=== PATIENT | female | born 1930 | race Asian ===

== ENCOUNTER 2019-04-01 14:25 | Inpatient (IN) | payer MEDICARE, OTHER ==
[~2019-04-01] VITALS: Ht 162.6 cm; Wt 60.4 kg
[~2019-04-01 14:25] MED LIST: ASPI-825 PO; BENZ-51 PO; HYDR-4173 PO; LEVO50TA11 PO; PRO AIR IH; SIMV-261 PO
[2019-04-01] MEDS ORDERED: PRAM0.258 PO (14:43)
[2019-04-01] MEDS ORDERED: LEVO250 PO (14:43)
[2019-04-01] MEDS ORDERED: LOSA50TA64 PO (14:43)
[2019-04-01] MEDS ORDERED: NEBI5 PO (14:43)
[2019-04-01] MEDS ORDERED: LEVO75 PO (14:43)
[2019-04-01] MEDS ORDERED: ONDANSETRON HCL 4 MG/2 ML VIAL IVP ONE (15:00)
[2019-04-01] MEDS ORDERED: FAMOTIDINE 10 MG/ML 2 ML VIAL IVP ONE (15:00)
[2019-04-01] MEDS ORDERED: SODIUM CHLORIDE 0.9% 1,000 ML IV ONE (15:00)
[2019-04-01] MEDS ORDERED: BARIUM SULFATE 0.1% SUSPENSION 450 ML BOTTLE PO ONE (15:00)
[2019-04-01] MEDS ORDERED: ASPI81 PO (15:09)
[2019-04-01 15:32] LABS: BASOPHILS % (AUTO) 0.2 % (0.0-2.0); EOSINOPHILS % (AUTO) 0.1 % (1.0-6.0); HEMATOCRIT 35.9 % (36-46); HEMOGLOBIN 12.3 g/dL (12.0-16.0); LYMPHOCYTES # (AUTO) 0.7 K/uL (1.0-4.8); LYMPHOCYTES % (AUTO) 9.8 % (22.0-44.0); MEAN CORPUSCULAR HEMOGLOBIN 29.8 pg (26.0-34.0); MEAN CORPUSCULAR HGB CONC 34.3 G/dL (31.0-37.0); MEAN CORPUSCULAR VOLUME 87 fL (80-100); MONOCYTES # (AUTO) 0.5 K/uL (0.1-1.0); MONOCYTES % (AUTO) 6.9 % (2.0-9.0); NEUTROPHILS # (AUTO) 6.1 K/uL (1.8-7.7); PLATELET COUNT (AUTO) 363 K/uL (150-450); RED BLOOD CELL COUNT(AUTO) 4.13 MIL/uL (4.00-5.20); RED CELL DISTRIBUTION WIDTH 13.6 % (11.5-14.5)
[2019-04-01 15:51] LABS: INR 1.1 (0.9-1.1); PROTHROMBIN TIME 11.6 SEC (9.4-11.6)
[2019-04-01 15:54] LABS: ALBUMIN 3.6 g/dL (3.4-5.0); CALCIUM, TOTAL 8.6 mg/dL (8.8-10.5); CREATININE 0.9 mg/dL (0.60-1.30); POTASSIUM 3.1 mmol/L (3.5-5.1); TOTAL PROTEIN, SERUM 7.5 g/dL (6.4-8.2)
[2019-04-01] MEDS ORDERED: SODIUM CHLORIDE 0.9% 100 ML ONE ×3 (16:50→16:52)
[2019-04-01] MEDS ORDERED: IOVERSOL 320 MG/ML 100 ML VIAL ONE (16:50)
[2019-04-01 16:59] LABS: MAGNESIUM 1.9 mg/dL (1.80-2.40)
[2019-04-01] MEDS ORDERED: POTASSIUM CHLORIDE 10% 40 MEQ/30 ML LIQUID UDCUP PO ONE (17:30)
[2019-04-01 17:39] LABS: POTASSIUM,URINE RANDOM 33 mmol/L (12-75); SODIUM,URINE RANDOM 62 mmol/l (20-110)
[2019-04-01 17:47] LABS: THYROID STIMULATING HORMONE 4.41 uIU/mL (0.36-3.74)
[2019-04-01 17:55] LABS: APPEARANCE,URINE CLEAR (CLEAR); BILIRUBIN,URINE NEGATIVE (NEGATIVE); GLUCOSE, URINE (UA) NEGATIVE (NEGATIVE); KETONES,URINE NEGATIVE (NEGATIVE); LEUKOCYTE ESTERASE ,URINE NEGATIVE (NEGATIVE); NITRATE,URINE NEGATIVE (NEGATIVE); OCCULT BLOOD,URINE SMALL (NEGATIVE); PROTEIN,URINE NEGATIVE (NEGATIVE); UROBILINOGEN,URINE 0.2 mg/dL (<=1.0)
[2019-04-01 18:02] LABS: BACTERIA,URINE None Seen /HPF (None Seen); RBC,URINE 0-2 /HPF (0-2); SQUAMOUS EPITHELIAL CELL,UR Rare /LPF (None Seen); WBC,URINE 0-2 /HPF (0-5)
[2019-04-01 18:05] LABS: OSMOLALITY,URINE 293 mOS/kg (50-1200)
[2019-04-01] MEDS ORDERED: 0.9% SODIUM CHLORIDE 10 ML SYRINGE IVP PRN (18:15)
[2019-04-01] MEDS ORDERED: ACETAMINOPHEN 325 MG TABLET PO PRN (18:15)
[2019-04-01 21:40] VITALS: BP 114/73
[2019-04-02 00:08] VITALS: BP 118/71
[2019-04-02] MEDS ORDERED: MetroNIDAZOLE 500 MG/NACL 100 ML IV SCH (01:15)
[2019-04-02] MEDS ORDERED: HYDROCODONE/ACETAMINOPHEN 5-325 MG TABLET PO PRN (01:15)
[2019-04-02] MEDS ORDERED: ACETAMINOPHEN 325 MG TABLET PO PRN (01:15)
[2019-04-02] MEDS ORDERED: CIPROFLOXACIN 400 MG/D5% WATER 200 ML IV SCH (01:15)
[2019-04-02] MEDS ORDERED: MAGNESIUM HYDROXIDE SUSPENSION 30 ML UDCUP PO PRN (01:15)
[2019-04-02] MEDS ORDERED: IPRATROPIUM BROMIDE 0.5 MG/2.5 ML NEB SOLUTION NEB PRN (01:15)
[2019-04-02] MEDS ORDERED: MORPHINE SULFATE 2 MG/ML SYRINGE IVP PRN (01:15)
[2019-04-02] MEDS ORDERED: ONDANSETRON HCL 4 MG/2 ML VIAL IVP PRN (01:15)
[2019-04-02] MEDS ORDERED: ALBUTEROL SULFATE 2.5 MG/0.5 ML NEB SOLUTION NEB PRN (01:15)
[2019-04-02] MEDS ORDERED: BISACODYL 10 MG RECTAL RECTAL SUPPOSITORY PR PRN (01:15)
[2019-04-02] MEDS ORDERED: ZOLPIDEM TARTRATE 5 MG TABLET PO PRN (01:15)
[2019-04-02] MEDS: MetroNIDAZOLE 500 MG/NACL 100 ML IV SCH ×3 (01:40→16:46)
[2019-04-02] MEDS: CIPROFLOXACIN 400 MG/D5% WATER 200 ML IV SCH ×2 (02:27→14:20)
[2019-04-02] MEDS: SODIUM CHLORIDE 0.9% 1,000 ML IV SCH ×2 (02:27→16:51)
[2019-04-02 05:30] VITALS: BP 107/68
[2019-04-02] MEDS: LEVOTHYROXINE SODIUM 75 MCG TABLET PO SCH (06:45)
[2019-04-02 07:23] LABS: ANION GAP 9 mmol/L (8-16); CALCIUM, TOTAL 8.1 mg/dL (8.8-10.5); CARBON DIOXIDE 23 mmol/L (22-29); CHLORIDE 87 mmol/L (98-107); CREATININE 0.78 mg/dL (0.60-1.30); GLUCOSE,RANDOM 95 mg/dL (70-110); POTASSIUM 3.4 mmol/L (3.5-5.1); UREA NITROGEN, BLOOD 9 mg/dL (7-18)
[2019-04-02 07:33] LABS: GLOMERULAR FILTR. RATE CALC > 60 mL/min (>60); SODIUM SERUM 119 mmol/L (136-145)
[2019-04-02 08:12] VITALS: BP 98/69
[2019-04-02] MEDS: HydrALAZINE HCL 25 MG TABLET PO SCH ×2 (08:30→19:25)
[2019-04-02] MEDS: DOCUSATE SODIUM 100 MG CAPSULE PO SCH ×2 (08:31→19:54)
[2019-04-02] MEDS: HEPARIN SODIUM,PORCINE 5,000 UNITS/ML VIAL SQ SCH ×2 (08:33→16:52)
[2019-04-02] MEDS: ASPIRIN 81 MG CHEWABLE TABLET PO SCH (08:33)
[2019-04-02] MEDS: PRAMIPEXOLE DI-HCL 0.25 MG TABLET PO SCH (08:33)
[2019-04-02] MEDS: FAMOTIDINE 20 MG TABLET PO SCH ×2 (08:34→19:52)
[2019-04-02] MEDS: SIMVASTATIN 40 MG TABLET PO SCH (08:35)
[2019-04-02] MEDS ORDERED: NEBIVOLOL HCL 5 MG TABLET PO SCH (09:00)
[2019-04-02] MEDS ORDERED: LOSARTAN POTASSIUM 50 MG TABLET PO SCH (09:00)
[2019-04-02 11:41] VITALS: BP 100/55
[2019-04-02 15:54] VITALS: BP 103/66
[2019-04-02 16:50] LABS: CALCIUM, TOTAL 7.7 mg/dL (8.8-10.5); CREATININE 0.94 mg/dL (0.60-1.30); POTASSIUM 3.2 mmol/L (3.5-5.1)
[2019-04-02] MEDS ORDERED: SODIUM CHLORIDE 0.45% 1,000 ML IV ONE (19:12)
[2019-04-02 19:56] VITALS: BP 104/67
[2019-04-03] VITALS (8 sets, daily range): BP systolic 102–134; BP diastolic 67–88
[2019-04-03] MEDS: MetroNIDAZOLE 500 MG/NACL 100 ML IV SCH ×3 (01:30→16:39)
[2019-04-03] MEDS: CIPROFLOXACIN 400 MG/D5% WATER 200 ML IV SCH ×2 (03:07→12:45)
[2019-04-03] MEDS: LEVOTHYROXINE SODIUM 75 MCG TABLET PO SCH (06:19)
[2019-04-03] MEDS: SODIUM CHLORIDE 0.9% 1,000 ML IV SCH ×2 (06:21→16:39)
[2019-04-03 07:48] LABS: ANION GAP 7 mmol/L (8-16); CARBON DIOXIDE 25 mmol/L (22-29); CHLORIDE 93 mmol/L (98-107); CREATININE 0.88 mg/dL (0.60-1.30); GLUCOSE,RANDOM 93 mg/dL (70-110); POTASSIUM 3.3 mmol/L (3.5-5.1); SODIUM SERUM 125 mmol/L (136-145); UREA NITROGEN, BLOOD 7 mg/dL (7-18)
[2019-04-03 07:49] LABS: GLOMERULAR FILTR. RATE CALC > 60 mL/min (>60)
[2019-04-03] MEDS: DOCUSATE SODIUM 100 MG CAPSULE PO SCH ×2 (08:36→22:05)
[2019-04-03] MEDS: ASPIRIN 81 MG CHEWABLE TABLET PO SCH (08:36)
[2019-04-03] MEDS: FAMOTIDINE 20 MG TABLET PO SCH ×2 (08:37→22:05)
[2019-04-03] MEDS: PRAMIPEXOLE DI-HCL 0.25 MG TABLET PO SCH (08:38)
[2019-04-03] MEDS: SIMVASTATIN 40 MG TABLET PO SCH (08:38)
[2019-04-03] MEDS: HEPARIN SODIUM,PORCINE 5,000 UNITS/ML VIAL SQ SCH ×3 (08:38→16:38)
[2019-04-03] MEDS ORDERED: POTASSIUM CHLORIDE 20 MEQ ER TABLET PO ONE (09:30)
[2019-04-04] MEDS: CIPROFLOXACIN 400 MG/D5% WATER 200 ML IV SCH ×2 (03:11→14:11)
[2019-04-04] MEDS: MetroNIDAZOLE 500 MG/NACL 100 ML IV SCH ×4 (03:12→23:03)
[2019-04-04 04:13] VITALS: BP 134/74
[2019-04-04] MEDS: SODIUM CHLORIDE 0.9% 1,000 ML IV SCH (06:32)
[2019-04-04] MEDS: LEVOTHYROXINE SODIUM 75 MCG TABLET PO SCH (06:33)
[2019-04-04 06:59] LABS: ANION GAP 8 mmol/L (8-16); CALCIUM, TOTAL 7.8 mg/dL (8.8-10.5); CARBON DIOXIDE 25 mmol/L (22-29); CHLORIDE 95 mmol/L (98-107); CREATININE 0.81 mg/dL (0.60-1.30); GLUCOSE,RANDOM 129 mg/dL (70-110); PHOSPHORUS 2.2 mg/dL (2.5-4.9); SODIUM SERUM 128 mmol/L (136-145); UREA NITROGEN, BLOOD 6 mg/dL (7-18)
[2019-04-04 07:32] LABS: GLOMERULAR FILTR. RATE CALC > 60 mL/min (>60); POTASSIUM 2.9 mmol/L (3.5-5.1)
[2019-04-04 07:33] VITALS: BP 113/76
[2019-04-04] MEDS ORDERED: POTASSIUM CHLORIDE 20 MEQ ER TABLET PO ONE (07:45)
[2019-04-04] MEDS: HEPARIN SODIUM,PORCINE 5,000 UNITS/ML VIAL SQ SCH ×4 (08:00→23:03)
[2019-04-04] MEDS: DOCUSATE SODIUM 100 MG CAPSULE PO SCH ×2 (08:42→20:44)
[2019-04-04] MEDS: PRAMIPEXOLE DI-HCL 0.25 MG TABLET PO SCH (08:42)
[2019-04-04] MEDS: POTASSIUM PHOS/SODIUM PHOS MIXTURE 1 POWDER PACKET PO SCH ×3 (08:42→20:44)
[2019-04-04] MEDS: ASPIRIN 81 MG CHEWABLE TABLET PO SCH (08:42)
[2019-04-04] MEDS: FAMOTIDINE 20 MG TABLET PO SCH ×2 (08:43→20:44)
[2019-04-04] MEDS: SIMVASTATIN 40 MG TABLET PO SCH (08:43)
[2019-04-04 12:36] VITALS: BP 122/62
[2019-04-04 15:44] VITALS: BP 138/84
[2019-04-04 20:45] VITALS: BP 140/76
[2019-04-05 00:25] VITALS: BP 134/75
[2019-04-05] MEDS: CIPROFLOXACIN 400 MG/D5% WATER 200 ML IV SCH ×2 (02:16→14:00)
[2019-04-05 04:58] VITALS: BP 138/79
[2019-04-05 06:18] LABS: ANION GAP 7 mmol/L (8-16); CALCIUM, TOTAL 8.1 mg/dL (8.8-10.5); CARBON DIOXIDE 27 mmol/L (22-29); CHLORIDE 93 mmol/L (98-107); CREATININE 0.85 mg/dL (0.60-1.30); GLUCOSE,RANDOM 107 mg/dL (70-110); POTASSIUM 3.7 mmol/L (3.5-5.1); SODIUM SERUM 127 mmol/L (136-145); UREA NITROGEN, BLOOD 5 mg/dL (7-18)
[2019-04-05] MEDS: LEVOTHYROXINE SODIUM 75 MCG TABLET PO SCH (06:19)
[2019-04-05 06:24] LABS: GLOMERULAR FILTR. RATE CALC > 60 mL/min (>60)
[2019-04-05 07:36] VITALS: BP 121/69
[2019-04-05] MEDS: MetroNIDAZOLE 500 MG/NACL 100 ML IV SCH ×2 (08:32→16:06)
[2019-04-05] MEDS: ASPIRIN 81 MG CHEWABLE TABLET PO SCH (08:32)
[2019-04-05] MEDS: HEPARIN SODIUM,PORCINE 5,000 UNITS/ML VIAL SQ SCH ×2 (08:32→16:02)
[2019-04-05] MEDS: DOCUSATE SODIUM 100 MG CAPSULE PO SCH ×2 (08:33→20:41)
[2019-04-05] MEDS: POTASSIUM PHOS/SODIUM PHOS MIXTURE 1 POWDER PACKET PO SCH ×3 (08:33→20:41)
[2019-04-05] MEDS: FAMOTIDINE 20 MG TABLET PO SCH ×2 (08:33→20:41)
[2019-04-05] MEDS: PRAMIPEXOLE DI-HCL 0.25 MG TABLET PO SCH (08:33)
[2019-04-05] MEDS: SIMVASTATIN 40 MG TABLET PO SCH (08:33)
[2019-04-05] MEDS: SODIUM CHLORIDE 1 GM TABLET PO SCH ×2 (09:24→20:41)
[2019-04-05 11:15] VITALS: BP 114/76
[2019-04-05 15:37] VITALS: BP 127/90
[2019-04-05 21:39] VITALS: BP 135/62
[2019-04-06] MEDS: HEPARIN SODIUM,PORCINE 5,000 UNITS/ML VIAL SQ SCH ×2 (00:04→09:12)
[2019-04-06] MEDS: MetroNIDAZOLE 500 MG/NACL 100 ML IV SCH ×2 (00:04→08:01)
[2019-04-06 01:31] VITALS: BP 154/75
[2019-04-06] MEDS: CIPROFLOXACIN 400 MG/D5% WATER 200 ML IV SCH (02:33)
[2019-04-06 05:06] VITALS: BP 116/44
[2019-04-06] MEDS: LEVOTHYROXINE SODIUM 75 MCG TABLET PO SCH (05:59)
[2019-04-06 07:01] LABS: BASOPHILS % (AUTO) 0.8 % (0.0-2.0); EOSINOPHILS % (AUTO) 1.7 % (1.0-6.0); HEMATOCRIT 35.4 % (36-46); LYMPHOCYTES % (AUTO) 16.3 % (22.0-44.0); MEAN CORPUSCULAR HEMOGLOBIN 29.9 pg (26.0-34.0); MEAN CORPUSCULAR HGB CONC 33.9 G/dL (31.0-37.0); MEAN CORPUSCULAR VOLUME 88 fL (80-100); MONOCYTES # (AUTO) 0.6 K/uL (0.1-1.0); MONOCYTES % (AUTO) 10.9 % (2.0-9.0); NEUTROPHILS # (AUTO) 4.2 K/uL (1.8-7.7); NEUTROPHILS % (AUTO) 70.3 % (40.0-70.0); PLATELET COUNT (AUTO) 341 K/uL (150-450); RED BLOOD CELL COUNT(AUTO) 4.01 MIL/uL (4.00-5.20); RED CELL DISTRIBUTION WIDTH 14.5 % (11.5-14.5)
[2019-04-06 07:31] LABS: ANION GAP 10 mmol/L (8-16); CALCIUM, TOTAL 8.1 mg/dL (8.8-10.5); CARBON DIOXIDE 26 mmol/L (22-29); CHLORIDE 94 mmol/L (98-107); CREATININE 0.88 mg/dL (0.60-1.30); GLUCOSE,RANDOM 123 mg/dL (70-110); POTASSIUM 3.3 mmol/L (3.5-5.1); SODIUM SERUM 130 mmol/L (136-145); UREA NITROGEN, BLOOD 7 mg/dL (7-18)
[2019-04-06 07:32] LABS: GLOMERULAR FILTR. RATE CALC > 60 mL/min (>60)
[2019-04-06] MEDS ORDERED: POTASSIUM CHL 10 MEQ/WATER 50 ML IV SCH (07:45)
[2019-04-06 08:02] VITALS: BP 129/74
[2019-04-06] MEDS: DOCUSATE SODIUM 100 MG CAPSULE PO SCH (09:00)
[2019-04-06] MEDS: POTASSIUM PHOS/SODIUM PHOS MIXTURE 1 POWDER PACKET PO SCH (09:05)
[2019-04-06] MEDS: PRAMIPEXOLE DI-HCL 0.25 MG TABLET PO SCH (09:06)
[2019-04-06] MEDS: SIMVASTATIN 40 MG TABLET PO SCH (09:06)
[2019-04-06] MEDS: SODIUM CHLORIDE 1 GM TABLET PO SCH (09:06)
[2019-04-06] MEDS: FAMOTIDINE 20 MG TABLET PO SCH (09:07)
[2019-04-06] MEDS: ASPIRIN 81 MG CHEWABLE TABLET PO SCH (09:07)
[2019-04-06] MEDS ORDERED: POTASSIUM CHLORIDE 20 MEQ ER TABLET PO ONE (09:45)
[2019-04-06 11:24] VITALS: BP 130/70
[2019-04-06] MEDS ORDERED: CEPH500 PO (13:57)
[2019-04-06] MEDS ORDERED: METR500 PO (13:58)
[2019-04-06 15:21] VITALS: BP 131/76
== END 2019-04-06 15:53 | disposition home or self-care (01) | DRG 392 ==
LOC: EMS 14:28 → 5S 18:23
PROVIDERS: ADMIT Hospitalist; ATTEND Hospitalist
DX: K52.9 Noninfective gastroenteritis and colitis, unspecified (principal); E87.1 Hypo-osmolality and hyponatremia; E44.0 Moderate protein-calorie malnutrition; E03.9 Hypothyroidism, unspecified; E78.5 Hyperlipidemia, unspecified; E87.6 Hypokalemia; K59.00 Constipation, unspecified; E78.00 Pure hypercholesterolemia, unspecified; I95.9 Hypotension, unspecified; E86.1 Hypovolemia; I48.91 Unspecified atrial fibrillation; Z82.49 Family history of ischemic heart disease and other diseases of the circulatory system; Z83.3 Family history of diabetes mellitus; Z68.22 Body mass index [BMI] 22.0-22.9, adult; Z88.0 Allergy status to penicillin; Z79.899 Other long term (current) drug therapy; Z79.82 Long term (current) use of aspirin
CPT/HCPCS: 74177; 82533; 83735; 83930; 83935; 84100; 84132; 84133; 84300; 84439; 84443; 93005; 97110; 97116; 97162; 97166; 97530; 97535; J0744; J1644; J2405; J3490; J7030; J7050